=== PATIENT | female | born 1950 | race Caucasian/White ===

== ENCOUNTER 2020-12-14 09:11 | Emergency (ER) | payer MEDICARE, OTHER ==
[~2020-12-14] VITALS: Ht 162.6 cm; Wt 58.1 kg
[~2020-12-14 09:11] MED LIST: ATOR20TA PO; IBUP-974 PO; LISI-486 PO; MECL-303 PO; OMEP-100 PO; [UNRECOGNIZED DRUG - CODE] PO
[2020-12-14 09:46] VITALS: BP 149/78
--- NOTE | 2020-12-14 09:50 | NUR ---
PT TAKEN TO LOBBY VIA W/C TO WAIT.
--- NOTE | 2020-12-14 10:52 | NUR ---
PT W/C ASSISTED TO ER BED 2.
--- NOTE | 2020-12-14 11:25 | NUR ---
70 y/o F BIB daughter c/o Left foot pain x 3 days. Patient A&Ox4, wheelchair assisted d/t pain, states she fell at work landing on her left knee. Patient states since Tuesday, she has been unable to bear weight d/t pain to bottom of left foot. Patient states 8/10, sharp/constant, radiating up to left hip; pain worsens upon palpation. Denies fever, chills, nausea, vomiting, SOB, chest pain, dizziness, headache. States Tylenol and Etorolac prior to arrival without relief. Pt noted with numerous small bumps to bottom of feet; sensitive to touch. Bed locked in lowest position, side rails x 1. PMH: HLD, HTN Meds: Unable to obtain NKA
--- NOTE | 2020-12-14 12:31 | NUR ---
Patient resting in semi-fowlers; states pain 5/10 at this time. Daughter remains at bedside. VSS. Respirations even/unlabored. Bed locked in lowest position, side rails x 1, call light in reach.
[2020-12-14 12:56] VITALS: BP 138/86
[2020-12-14] MEDS ORDERED: TERB125S TP (13:14)
--- NOTE | 2020-12-14 13:21 | NUR ---
Patient discharged with v/s stable. Written and verbal after care instructions given and explained. Patient alert, oriented and verbalized understanding of instructions. Ambulatory with steady gait. All questions addressed prior to discharge. ID band removed. Patient advised to follow up with PMD. Rx of Terbinafine Hcl given. Patient educated on indication of medication including possible reaction and side effects. Opportunity to ask questions provided and answered.
== END 2020-12-14 13:21 | disposition home or self-care (01) ==
LOC: MED 09:11
DX: M79.672 Pain in left foot (principal); M25.562 Pain in left knee; I10 Essential (primary) hypertension; Z79.899 Other long term (current) drug therapy
CPT/HCPCS: 73630; 99283